=== PATIENT | female | born 1970 | race Two or more races ===

== ENCOUNTER → 2019-12-08 | Outpatient (CLI) | payer OTHER ==
--- NOTE | 2019-12-08 09:09 | Diagnostic Imaging Report ---
Exam: Pelvic ultrasound. History: Menorrhagia, abnormal vaginal bleeding. Comparison: None Findings: Transabdominal and endovaginal sonographic evaluation of the pelvis. The uterus is anteverted in position, measuring 8.5 x 7.0 x 7.0cm. Multiple intramural and subserosal fibroids measure up to 2.1 and 2.2 cm. Endometrial stripe thickness is 10 millimeters. The right ovary measures 3.4 x 1.7 x 2.6 cm. The left ovary measures 2.5 x 1.8 x 1.7 cm and contains an 8 mm simple cyst. Nabothian cyst of the cervix. No free fluid in the pelvis. Impression: Multiple intramural and subserosal fibroids measure up to 2.2 cm. Endometrial stripe thickness of 10 mm could be within normal limits in this premenopausal patient. Signed by: Lynn Stubbs MD on 12/08/2019 9:05 AM
== END ==
LOC: US 07:35
PROVIDERS: ATTEND Obstetrics & Gynecology
DX: N93.8 Other specified abnormal uterine and vaginal bleeding (principal); N92.0 Excessive and frequent menstruation with regular cycle; D25.1 Intramural leiomyoma of uterus
CPT/HCPCS: 76830; 76856